=== PATIENT | female | born 1985 | race Caucasian/White ===

== ENCOUNTER 2017-04-05 14:59 | Emergency (ER) | payer SELFPAY ==
[2017-04-05 15:13] VITALS: BP 109/65; PULSE 80; TEMP 97.9; BMI 31.8
[2017-04-05] MEDS ORDERED: IBUPROFEN 400 MG TABLET (FP) PO ONE ×2 (16:31→17:16)
--- NOTE | 2017-04-05 16:31 | PDOC ---
*Physical Exam - Vital Signs Last Vital Signs Temp Pulse Resp BP Pulse Ox 97.9 F 80 18 109/65 99 04/05/17 15:09 04/05/17 15:09 04/05/17 15:09 04/05/17 15:09 04/05/17 15:09 ED Treatment Course - LABORATORY CBC & Chemistry Diagram: 04/05/17 17:12 04/05/17 17:12 Medical Decision Making - Medical Decision Making 04/06/17 01:56 Pt seen by the Advanced Practice Provider under my direct supervision Ancillary studies reviewed I agree with plan as outlined by the Advanced Practice Provider *DC/Admit/Observation/Transfer Diagnosis at time of Disposition: bleeding - Discharge Dispostion Disposition: HOME Condition at time of disposition: Good - Prescriptions Prescriptions: Methylergonovine Maleate [Methergine] 0.2 mg PO Q6H #4 tablet - Patient Instructions Printed Discharge Instructions: DI for Hemorrhage Additional Instructions: Guzman ultrasonido muestra cogulos de ana en el tero. Se inici un medicamento llamado Methergine, que puede ayudar a expulsar estos cogulos de ana. [place] 0 ,2 mg cada 6 horas yadira las prximas 24 horas y por favor siga con guzman OB ma leida o viernes. Si los sntomas empeoran, regrese inmediatamente a la marilu de emergencias
--- NOTE | 2017-04-05 16:47 | PDOC ---
History of Present Illness - General Chief Complaint: Vaginal Sxs Stated Complaint: POST PAIN Time Seen by Provider: 04/05/17 16:22 History Source: Patient - History of Present Illness Timing/Duration: reports: other (today) Abdominal Pain Onset Location: reports: suprapubic Past History - Past Medical History Allergies/Adverse Reactions: Allergies Allergy/AdvReac Type Severity Reaction Status Date / Time No Known Allergies Allergy Verified 04/05/17 15:08 Home Medications: Ambulatory Orders Methylergonovine Maleate [Methergine] 0.2 mg PO Q6H #4 tablet 04/05/17 Other medical history: denies - Immunization History Immunization Up to Date: Yes - Suicide/Smoking/Psychosocial Hx Smoking History: Never smoked Hx Alcohol Use: No Drug/Substance Use Hx: No Review of Systems - Review of Systems Constitutional: No: Chills, Fever ABD/GI: No: Constipated, Diarrhea, Nausea, Vomiting : No: Dysuria, Flank Pain, Hematuria Neurological: Yes: Dizziness *Physical Exam - Vital Signs Last Vital Signs Temp Pulse Resp BP Pulse Ox 97.9 F 80 18 109/65 99 04/05/17 15:09 04/05/17 15:09 04/05/17 15:09 04/05/17 15:09 04/05/17 15:09 - Physical Exam General Appearance: Yes: Appropriately Dressed. No: Apparent Distress HEENT: positive: Normal Voice Neck: positive: Supple Respiratory/Chest: negative: Respiratory Distress Female Pelvic Exam: positive: other (moderate vag bleeding, unable to tolertae speculum exam, perineum intact w/ no lacs) Gastrointestinal/Abdominal: positive: Tender (to mid suprapubic, NT over mcburneys) Musculoskeletal: negative: CVA Tenderness Integumentary: positive: Dry, Warm Neurologic: positive: Fully Oriented, Alert, Normal Mood/Affect ED Treatment Course - LABORATORY CBC & Chemistry Diagram: 04/05/17 17:12 04/05/17 17:12 - RADIOLOGY Radiology Studies Ordered: Category Date Time Status PELVIS(OTHER) US [US] Stat Ultrasound 04/05/17 16:30 Ordered Medical Decision Making - Medical Decision Making 04/05/17 16:39 31 yo , , s/p 7 days ago at outside hospital and was doing well until she started having severe suprapubic/intravaginal pain today. Denies perineal tear during labor. Also c/o lightheadedness and felt like passing out earlier. Continues to have some bleeding since delivery, that has not worsened in nature. Denies dysuria, nausea, vomiting, fever or chills See exam vaginal pain s/p spon vag delivery 7 days ago at OSH w/ no post op complications per pt, i.e no perineal tear Unclear source as this time, perineum intact w/ no e/o infection, ? vaginal hematoma though no skin bulge/discoloration, ?RPOC, r/o uti -pain control -labs/ua -US 04/05/17 16:48 04/05/17 17:09 04/05/17 18:41 US demonstrates pt's IUD and blood clots in endometrium, cannot r/o RPOC per report. Case d/w Dr Bob of OB who recommends given patient 0.2 mg of Methergine every 6 hours for the next 24 hours and instructed patient to follow- up with her OB this week. Leukocytosis to 12 on labs which can be normal in setting. UA neg. Do not suspect infection at this time. Pt stable for discharge *DC/Admit/Observation/Transfer Diagnosis at time of Disposition: bleeding Qualifiers: hemorrhage type: unspecified Qualified Code(s): O72.1 - Other immediate hemorrhage; O72.1 - Other immediate hemorrhage - Discharge Dispostion Disposition: HOME Condition at time of disposition: Good - Prescriptions Prescriptions: Methylergonovine Maleate [Methergine] 0.2 mg PO Q6H #4 tablet - Patient Instructions Printed Discharge Instructions: DI for Hemorrhage Additional Instructions: Guzman ultrasonido muestra cogulos de ana en el tero. Se inici un medicamento llamado Methergine, que puede ayudar a expulsar estos cogulos de ana. [place] 0 ,2 mg cada 6 horas yadira las prximas 24 horas y por favor siga con guzman OB ma leida o viernes. Si los sntomas empeoran, regrese inmediatamente a la marilu de emergencias
[2017-04-05 17:25] LABS: BASOPHIL 0.9 % (0-2.0); EOSINOPHIL 1.4 % (0-4.5); MCH 28.8 pg (25.7-33.7); MCHC 32.7 g/dl (32.0-36.0); MEAN CELL VOLUME 88.1 fl (80-96); NEUTROPHILS 78.3 % (42.8-82.8); PLATELET COUNT 334 K/MM3 (134-434); WHITE BLOOD COUNT 12.5 K/mm3 (4.0-10.0)
[2017-04-05 17:37] LABS: URINE APPEARANCE SLCLOUDY; URINE BILIRUBIN NEGATIVE (NEGATIVE); URINE BLOOD 3+ (NEGATIVE); URINE COLOR YELLOW; URINE GLUCOSE (UA) NEGATIVE (NEGATIVE); URINE KETONE NEGATIVE (NEGATIVE); URINE NITRITE NEGATIVE (NEGATIVE); URINE PROTEIN NEGATIVE (NEGATIVE); URINE UROBILINOGEN NEGATIVE mg/dL (0.2-1.0)
[2017-04-05 17:44] LABS: URINE BACTERIA FEW /hpf (NONE SEEN); URINE MUCUS RARE; URINE RBC 32 /hpf (0-3); URINE WBC 12 /hpf (3-5)
[2017-04-05 17:50] LABS: ALBUMIN 3.1 g/dl (3.4-5.0); ALK PHOS 112 U/L (45-117); ANION GAP 11 (8-16); BILIRUBIN,TOTAL 0.3 mg/dL (0.2-1.0); CALCIUM 9.1 mg/dL (8.5-10.1); CO2 24 mmol/L (21-32); CREATININE 0.6 mg/dL (0.55-1.02); GLUCOSE,RANDOM 88 mg/dL (74-106); SGOT/AST 25 U/L (15-37); SGPT/ALT 40 U/L (12-78); TOT PROT 7.3 g/dl (6.4-8.2)
[2017-04-05 21:19] LABS: URINE LEUK ESTERASE TRACE (NEGATIVE)
== END 2017-04-05 18:55 | disposition home or self-care (01) ==
LOC: JER 14:59
DX: O72.1 Other immediate postpartum hemorrhage (principal)
CPT/HCPCS: 36415; 76856-TC; 80053; 81003; 81015; 85025; 99282-25